=== PATIENT | female | born 1945 | race Caucasian/White ===

== ENCOUNTER → 2017-08-30 | Outpatient (CLI) | payer OTHER, MEDICAID | LOC: FIMAGING 12:56 | PROVIDERS: ATTEND Physician Assistant | DX: Z12.31 Encounter for screening mammogram for malignant neoplasm of breast (principal); Z13.820 Encounter for screening for osteoporosis; M81.0 Age-related osteoporosis without current pathological fracture ==

== ENCOUNTER → 2017-10-23 | Outpatient (CLI) | payer OTHER, MEDICAID | LOC: CIMAGING 10:01 | PROVIDERS: ATTEND Physician Assistant | DX: Z13.6 Encounter for screening for cardiovascular disorders (principal); I25.10 Atherosclerotic heart disease of native coronary artery without angina pectoris; Z82.49 Family history of ischemic heart disease and other diseases of the circulatory system ==

== ENCOUNTER 2018-05-01 19:42 | Emergency (ER) | payer OTHER, MEDICAID ==
--- NOTE | 2018-05-01 20:06 | EDPHY ---
H & P Time Seen by Provider: 05/01/18 19:49 HPI/ROS: CHIEF COMPLAINT: Finger injury HISTORY OF PRESENT ILLNESS: Patient states that approximately 7;30 she was walking her dog with the use of her motorized wheelchair. She was using it a rope as a least because she could not find her regular lesion. The rope got caught in the wheels of the wheelchair and pulled lacerating in injuring her left middle finger. She thinks her tetanus shot is up-to-date. She denies other injuries. REVIEW OF SYSTEMS: Negative except per HPI. General Appearance: Alert, no distress. Eyes: Pupils equal and round no icterus Respiratory: No respiratory distress Neurological: Awake, alert, no focal deficits. Skin: Warm and dry, no rashes. Musculoskeletal: Neck is supple nontender. Left middle finger has large avulsion laceration/degloving injury with a flap extending just distal to the PIP joint to the D IP joint. Flap tissue is dusky. Finger tip has delayed but present cap refil. Weakness with flexion in profundus distribution. 2 point discrimination absent on radial aspect, present on ulnar aspect. Psychiatric: Patient is oriented X 3, there is no agitation. Medical/surgical history: Spina bifida, chronic UTIs, COPD, colon cancer with resection. Social history: Wheelchair-bound. Nonsmoker Smoking Status: Former smoker Constitutional: Initial Vital Signs Temperature (C) 36.9 C 05/01/18 20:05 Heart Rate 96 05/01/18 20:05 Respiratory Rate 18 05/01/18 20:05 Blood Pressure 109/97 H 05/01/18 20:05 O2 Sat (%) 93 05/01/18 20:05 O2 Delivery Mode Room Air Allergies/Adverse Reactions: No Known Allergies Allergy (Verified 05/01/18 20:03) Home Medications: Medication Instructions Recorded Estradiol [ESTRADIOL] 0.5 mg PO .DAY 03/29/11 FLUoxetine [Prozac 10 MG (RX)] 10 mg PO DAILY 02/06/12 busPIRone [Buspar (RX)] 10 mg PO BID 11/18/12 Prolia 04/27/14 Aspirin 325 mg (*) 04/09/18 Furosemide 04/09/18 Medical Decision Making - Diagnostics Imaging Results: Imaging Impressions Finger X-Ray 05/01/18 19:55 Impression: 1. Masslike soft tissue fullness volar to the middle phalanx of the left third finger. 2. Underlying degenerative changes. ED Course/Re-evaluation: 8:[address] Leif Pandya, plastics, plan to transfer to [facility] for plastics evaluation. 8:[address] Edwin Georges, emergency physician who will see patient in transfer. Differential Diagnosis: Differential diagnosis includes but is not limited to fracture, dislocation, neurovascular injury, tendon injury, degloving injury. Patient with significant flap/degloving type injury to the left middle finger. Neurovascular compromise present although no evidence of fracture or bony injury. Also likely significant tendon injury. Patient will be transferred to [facility] for plastics consultation. Discussed with Dr. Pandya who will see patient in the emergency department. Also discussed with Dr. Georges in the ED. Tetanus vaccination updated. Finger was blocked with 2 ml of 2% lidocaine - digital block, no antibiotics given. Wound was cleaned and dressed for transfer. - Data Points Medications Given: Discontinued Medications Diphtheria/Tetanus/Acell Pertussis (Boostrix) 0.5 ml IM .ONCE ONE Stop: 05/01/18 20:13 Last Admin: 05/01/18 20:22 Dose: 0.5 ml Departure - Departure Disposition: [facility] ER Clinical Impression: Finger, open wounds with tendon injury Qualifiers: Encounter type: initial encounter Qualified Code(s): S61.209A - Unspecified open wound of unspecified finger without damage to nail, initial encounter
[2018-05-01] MEDS ORDERED: TDAP ADULT 0.5 ML INJ (BOOSTRIX) IM ONE (20:12)
[2018-05-01] MEDS ORDERED: ceFAZolin 1 GM VIAL IVP ONE (22:07)
[2018-05-01] MEDS ORDERED: CEPHALEXIN 500 MG CAP PO ONE (23:51)
[2018-05-01] MEDS ORDERED: ACETAMINOPHEN 500 MG TAB PO ONE (23:51)
[2018-05-02 01:23] VITALS: BP 130/79
--- NOTE | 2018-05-02 12:28 | GCON ---
EMERGENCY ROOM CONSULTATION DATE OF CONSULTATION: 05/01/2018 CHIEF COMPLAINT: Laceration, left middle finger. HISTORY OF PRESENT COMPLAINT: The patient is a 72-year-old, wheelchair-bound woman who was walking h er dogs using a rope as a leash. The rope was wrapped around her left middle finger and became caugh t in the wheel of her electric wheelchair, sustaining a degloving type injury to the volar surface of her left nondominant middle finger. PAST MEDICAL HISTORY: Remarkable for spina bifida, which has progressively weakened her legs until j ust in the past few years she has been wheelchair-bound. She still lives independently. Other past medical history includes colon cancer with colon resection. She is a nonsmoker. EXAMINATION: She is a pleasant, very engaging 72-year-old woman with obvious injury to her left midd le finger. The laceration that is present is an avulsion-type injury, resulting in a distally based flap of the volar tissue of the left middle finger. The proximal extent of the laceration is near th e PIP joint, and the distal attached portion is at the DIP joint level. The volar tissue in the pad is clearly viable, and the most proximal portion of the flap is somewhat discolored but also viable. Underlying structures appear to be intact. The radial and ulnar side digital nerves are skeletonize d by the injury and appear intact. There is some bruising present, which would account for some numb ness that was noted in the fingertip, but there was not a nerve avulsion or laceration requiring repa ir. The flexor sheath has a small laceration in it, but the underlying tendon is clearly intact. Th e profundus tendon shows some weakness but is certainly working and has no sign of laceration in it. The superficialis tendon is functional and, in fact, is completely covered by intact sheath. TREATMENT RENDERED: Wound had been irrigated extensively prior to my arrival, and, after appropriate ly prepping with Betadine, I went ahead and sutured the flap of tissue back down. Length of the repa ir approximately 7 cm. Dressing of Xeroform and gauze was applied, followed by a fiberglass dorsal s lab type of splint. DISCHARGE PLAN/FOLLOWUP: Prescription will be given for to Nino, and I have instructed her to come and see me in the office early next week for a wound evaluation. /[id number]/MODL
== END 2018-05-01 23:00 | disposition home or self-care (01) ==
LOC: CED 19:42
PROC: 0HQGXZZ Repair Left Hand Skin, External Approach (ICD-10-PCS; principal; 2018-05-01)
DX: S61.213A Laceration without foreign body of left middle finger without damage to nail, initial encounter (principal); W23.0XXA Caught, crushed, jammed, or pinched between moving objects, initial encounter; Y93.K1 Activity, walking an animal; Y99.8 Other external cause status; Q05.9 Spina bifida, unspecified; Z87.440 Personal history of urinary (tract) infections; Z85.038 Personal history of other malignant neoplasm of large intestine; Z87.891 Personal history of nicotine dependence; Z99.3 Dependence on wheelchair
CPT/HCPCS: 12002; 73140; 90471; 90715; 96374; 99284; J0690

== ENCOUNTER → 2018-10-08 | Outpatient (CLI) | payer OTHER, MEDICAID | LOC: FIMAGING 15:30 | PROVIDERS: ATTEND Physician Assistant | DX: Z12.31 Encounter for screening mammogram for malignant neoplasm of breast (principal) ==

== ENCOUNTER → 2018-10-09 | Outpatient (CLI) | payer OTHER, MEDICAID | LOC: FIMAGING 11:09 | PROVIDERS: ATTEND Physician Assistant | DX: Z13.820 Encounter for screening for osteoporosis (principal); M81.0 Age-related osteoporosis without current pathological fracture; R91.1 Solitary pulmonary nodule; J43.2 Centrilobular emphysema; Z87.891 Personal history of nicotine dependence ==